=== PATIENT | female | born 1995 | race American Indian/Alaskan Native ===

== ENCOUNTER 2020-03-22 16:14 | Emergency (ER) | payer MEDICAID ==
--- NOTE | 2020-03-22 18:35 | Emergency Department Report ---
Blank Doc - Documentation Documentation: 24-year-old female that emerge department complaining of lower back pressure a ssociated with dysuria increased urinary urgency. No hemoptysis no hematemesis. She reports having some cold chills which started with her symptoms on yesterday. Pain had initially started to the suprapubic region and now has migrated up to her left flank This initial assessment/diagnostic orders/clinical plan/treatment(s) is/are subject to change based on patients health status, clinical progression and re- assessment by fellow clinical providers in the ED. Further treatment and workup at subsequent clinical providers discretion. Patient/guardian urged not to elope from the ED as their condition may be serious if not clinically assessed and managed. Initial orders include: Evaluate for UTI
[2020-03-22 19:13] LABS: Basophils # (Auto) 0.1 K/mm3 (0.0-0.1); Basophils % (Auto) 0.5 % (0.0-1.8); Eosinophils # (Auto) 0.2 K/mm3 (0.0-0.4); Eosinophils % (Auto) 0.9 % (0.0-4.3); Hematocrit 29.1 % (30.3-42.9); Hemoglobin 8.9 gm/dl (10.1-14.3); Lymphocytes # (Auto) 2.8 K/mm3 (1.2-5.4); Lymphocytes % (Auto) 15.4 % (13.4-35.0); Mean Corpuscular HGB Conc 31 % (30-34); Mean Corpuscular Volume 67 fl (79-97); Monocytes # (Auto) 1.1 K/mm3 (0.0-0.8); Monocytes % (Auto) 6.2 % (0.0-7.3); Platelet Count 481 K/mm3 (140-440); Red Blood Count 4.31 M/mm3 (3.65-5.03); Red Cell Distribution Width 18.8 % (13.2-15.2)
[2020-03-22 19:25] LABS: Alanine Aminotransferase 10 units/L (7-56); Albumin 4.2 g/dL (3.9-5); BUN/Creatinine Ratio 9; Blood Urea Nitrogen 7 mg/dL (7-17); Calcium 9.5 mg/dL (8.4-10.2); Hemolysis Index 16
[2020-03-22] MEDS ORDERED: ACETAMINOPHEN 325 MG TAB ONE (19:53)
[2020-03-22] MEDS ORDERED: ACETAMINOPHEN 325 MG TAB PO ONE (19:54)
[2020-03-22 21:45] LABS: Bilirubin,Urine NEG (Negative); Blood,Urine SM (Negative); Color,Urine Yellow (Yellow); Mucus,Urine FEW /HPF; Urobilinogen,Urine < 2.0 mg/dL (<2.0)
[2020-03-22 21:46] LABS: WBC,Urine > 182.0 /HPF (0.0-6.0)
[2020-03-22] MEDS ORDERED: SODIUM CHLORIDE 0.9% 1000 ML 2,000 ML IV ONE (21:54)
[2020-03-22] MEDS ORDERED: cefTRIAXone/NS 1 GM/50 ML 1 GM/50 ML BAG IV ONE (21:55)
[2020-03-22] MEDS ORDERED: MORPHINE 2 MG/1 ML INJ IV ONE (21:55)
[2020-03-22 22:18] LABS: HCG Qualitative,Urine Negative (Negative)
--- NOTE | 2020-03-22 23:21 | Emergency Department Report ---
ED Abdominal Pain HPI - General Chief Complaint: Urogenital-Female Stated Complaint: ABD PAIN, PAIN WHEN URINATE Time Seen by Provider: 03/22/20 20:13 Source: patient Mode of arrival: Ambulatory Limitations: No Limitations - History of Present Illness Initial Comments: 24-year-old female that emerge department complaining of lower back pressure associated with dysuria increased urinary urgency. No hemoptysis no hematemesis. She reports having some cold chills which started with her symptoms on yesterday. Pain had initially started to the suprapubic region and now has migrated up to her left flank MD Complaint: abdominal pain, flank pain Onset/Timin -: days(s) Location: suprapubic Radiation: L flank Severity scale (0 -10): 4 Quality: stabbing, aching Consistency: constant Improves With: nothing Worsens With: movement Associated Symptoms: nausea, fever, chills, dysuria. denies: vomiting, diarrhea - Related Data LMP Date: 03/17/20 Previous Rx's Medication Instructions Recorded Last Taken Type HYDROcodone/ACETAMINOPHEN [Vicodin 1 each PO Q8H PRN #12 tablet 03/23/20 Unknown Rx Hp 10-300 mg Tablet] Ibuprofen [Motrin 600 MG tab] 600 mg PO Q8H PRN #30 tablet 03/23/20 Unknown Rx Nitrofurantoin Tucker/M-Cryst 100 mg PO Q12HR 10 Days #20 capsule 03/23/20 Unknown Rx [Macrobid CAP] metroNIDAZOLE [Flagyl] 500 mg PO Q8HR 7 Days #21 tablet 03/23/20 Unknown Rx Allergies Allergy/AdvReac Type Severity Reaction Status Date / Time No Known Allergies Allergy Unverified 03/22/20 16:38 ED Review of Systems ROS: Stated complaint: ABD PAIN, PAIN WHEN URINATE Other details as noted in HPI Comment: All other systems reviewed and negative ED Past Medical Hx - Past Medical History Previous Medical History?: No - Surgical History Past Surgical History?: No - Social History Smoking Status: Never Smoker Substance Use Type: None - Medications Home Medications: Home Medications Medication Instructions Recorded Confirmed Last Taken Type HYDROcodone/ACETAMINOPHEN [Vicodin 1 each PO Q8H PRN #12 tablet 03/23/20 Unknown Rx Hp 10-300 mg Tablet] Ibuprofen [Motrin 600 MG tab] 600 mg PO Q8H PRN #30 tablet 03/23/20 Unknown Rx Nitrofurantoin Tucker/M-Cryst 100 mg PO Q12HR 10 Days #20 capsule 03/23/20 Unknown Rx [Macrobid CAP] metroNIDAZOLE [Flagyl] 500 mg PO Q8HR 7 Days #21 tablet 03/23/20 Unknown Rx ED Physical Exam - General Limitations: No Limitations General appearance: alert, in distress - Head Head exam: Present: atraumatic, normocephalic - Eye Eye exam: Present: normal appearance - ENT ENT exam: Present: mucous membranes moist - Neck Neck exam: Present: normal inspection - Respiratory Respiratory exam: Present: normal lung sounds bilaterally - Cardiovascular Cardiovascular Exam: Present: regular rate - GI/Abdominal GI/Abdominal exam: Present: soft, tenderness, guarding. Absent: distended - External exam: Present: normal external exam Speculum exam: Present: cervical discharge Bi-manual exam: Present: adnexal tenderness (right) - Extremities Exam Extremities exam: Present: normal inspection, full ROM - Back Exam Back exam: Present: normal inspection, full ROM - Neurological Exam Neurological exam: Present: alert, oriented X3, normal gait - Psychiatric Psychiatric exam: Present: normal affect, normal mood - Skin Skin exam: Present: warm, dry, intact, normal color. Absent: rash ED Course Vital Signs 03/22/20 03/22/20 03/23/20 18:59 20:02 01:35 Temperature 99.4 F 98.5 F Pulse Rate 90 101 H Respiratory 18 18 18 Rate Blood Pressure 120/63 Blood Pressure 153/80 [Right] O2 Sat by Pulse 99 100 Oximetry ED Medical Decision Making - Lab Data Result diagrams: 03/22/20 18:40 03/22/20 18:40 - Radiology Data Radiology results: report reviewed Patient Name: BOY FERGUSON Gender: Female Date of : 1995 Referring Provider: EVER ODOM Organization: [facility] Accession Number: [id number] Requested Date: March 22, 2020 23:58 Report Status: Final Requested Procedure: 1 Procedure Description: CT abdomen pelvis w con Modality: CT Findings Reporting MD: Lorena Everett Dictation Time: March 22, 2020 23:26 Enrollment Manager: Not available Continuity Editor Date: CT abdomen pelvis w con INDICATION / CLINICAL INFORMATION: Pt complains of LT flank pain and lower back pressure and nausea. TECHNIQUE: Axial CT imaging of abdomen and pelvis was obtained with IV contrast. Coronal and sagittal reformatted imaging obtained and reviewed. All CT scans at this location are performed using CT dose reduction for ALARA by means of automated exposure control. COMPARISON: None available. FINDINGS: CT abdomen with contrast demonstrates normal appearance of the liver, spleen, pancreas, kidneys, and adrenal glands. Gallbladder is unremarkable. CT pelvis with contrast demonstrates mild inflammatory change in the anterior aspect of the lower pelvis. There is marked fullness/ mass in the left adnexa. The appearance is nonspecific but certainly worrisome for an ovarian process. The right adnexa is unremarkable. Small amount of free fluid is present in the posterior cul-de-sac. The sigmoid colon appears mildly inflamed as well, but I suspect inflammatory process is not arising from the sigmoid colon but more than likely the left adnexa. The GI tract within the mid and upper abdomen is unremarkable. A normal appendix is present. Visualized lung bases are clear. No acute osseous abnormality noted. IMPRESSION: 1. Inflammatory process within the pelvis which may be arising from the left adnexa as there is masslike fullness within the left adnexa although appearance is nonspecific on CT. Possibility of tubo-ovarian abscess or ovarian torsion could have this appearance and further evaluation with pelvic ultrasound including transvaginal is recommended. 2. Small amount of free fluid in the posterior cul-de-sac is present. 3. No other significant finding. Signer Name: Lorena Everett MD Signed: 03/22/2020 11:26 PM Workstation Name: [id number] Patient: BOY FERGUSON MR#: [id number] : 1995 Acct:[id number] Age/Sex: 24 / F ADM Date: 03/22/20 Loc: ED Attending Dr: Ordering Physician: LILLIAN REAVES Date of Service: 03/23/20 Procedure(s): US pelvic complete Accession Number(s): [id number] cc: LILLIAN REAVES ULTRASOUND PELVIS INDICATION / CLINICAL INFORMATION: Pelvic pain concern for adnexal abscess. TECHNIQUE: Transabdominal. Duplex Color Doppler used: Yes. COMPARISON: CT abdomen/pelvis, 03/22/2020 FINDINGS: UTERUS: Uterus appearance is unremarkable. The uterus measures 9.0 x 3.2 x 4.7 cm. Endometrial complex has a thickness of 5 mm which is normal. No focal uterine mass. RIGHT ADNEXA: No significant ovarian cyst or mass. Normal color Doppler blood flow. LEFT ADNEXA: No significant ovarian cyst or mass. Normal color Doppler blood flow. URINARY BLADDER: No significant abnormality. FREE FLUID: None. ADDITIONAL FINDINGS: None. IMPRESSION: 1. No abnormal finding identified on transabdominal pelvic ultrasound. No sonographic correlate for left adnexal masslike fullness on CT scan. 2. Inflammatory change on CT scan could be secondary to colitis. There was mild inflammatory change associated with the sigmoid colon. Please correlate with clinical pr esentation/symptoms. Signer Name: Lorena Everett MD Signed: 03/23/2020 2:41 AM Workstation Name: [id number] Transcribed By: Dictated By: Lorena Everett MD Electronically Authenticated By: Lorena Everett MD Signed Date/Time: 03/23/20240 DD/ 5 TD/TT: - Medical Decision Making 24-year-old female that emerge department complaining of lower back pressure associated with dysuria increased urinary urgency. No hemoptysis no hematemesis. She reports having some cold chills which started with her symptoms on yesterday. Pain had initially started to the suprapubic region and now has migrated up to her left flank. Patient reports minimal movement makes her pain worse. Ordered CT with contrast, Rocephin 1 g IV, 2 L of normal saline, CBC CMP urinalysis. Urinalysis shows greater than 182 WBC with small amounts of blood, large esterase. CT is concern for inflammatory changes and adnexa abscess. Order for ultrasound has been placed. Discussed with attending Dr. Love. Ultrasound was ordered shows no abnormal findings identified in the transabdominal pelvic ultrasound. Inflammatory changes on the CT scan could be secondary to colitis. There was some mild inflammatory changes associated with the sigmoid colon. Spoke to Dr. Brown DESIGN ASSEMBLER sales consultant she recommends treating patient for PID pain management and have her follow-up at the office. Critical care attestation.: If time is entered above; I have spent that time in minutes in the direct care of this critically ill patient, excluding procedure time. ED Disposition Clinical Impression: Pelvic pain, PID (acute pelvic inflammatory disease) UTI (urinary tract infection) Qualifiers: Urinary tract infection type: site unspecified Hematuria presence: without hematuria Qualified Code(s): N39.0 - Urinary tract infection, site not specified Disposition: TO HOME OR SELFCARE Is pt being admited?: No Does the pt Need Aspirin: No Condition: Stable Instructions: Pelvic Inflammatory Disease, [id number], Urinary Tract Infection, Adult Additional Instructions: Complete antibiotic as prescribed. Take pain medication as needed. Is very important for you to follow-up with an DESIGN ASSEMBLER. Prescriptions: metroNIDAZOLE [Flagyl] 500 mg PO Q8HR 7 Days #21 tablet Nitrofurantoin Tucker/M-Cryst [Macrobid CAP] 100 mg PO Q12HR 10 Days #20 capsule Ibuprofen [Motrin 600 MG tab] 600 mg PO Q8H PRN #30 tablet PRN Reason: Pain HYDROcodone/ACETAMINOPHEN [Vicodin Hp 10-300 mg Tablet] 1 each PO Q8H PRN #12 tablet PRN Reason: Pain , Severe (7-10) Referrals: LUCÍA JOHNSON MD [Primary Care Provider] - 3-5 Days [facility] [Provider Group] - 3-5 Days [facility] [Provider Group] - 3-5 Days [facility] [Provider Group] - 3-5 Days Forms: Work/School Release Form(ED)
--- NOTE | 2020-03-23 00:31 | Cat Scan Report ---
CT abdomen pelvis w con INDICATION / CLINICAL INFORMATION: Pt complains of LT flank pain and lower back pressure and nausea. TECHNIQUE: Axial CT imaging of abdomen and pelvis was obtained with IV contrast. Coronal and sagittal reformatte d imaging obtained and reviewed. All CT scans at this location are performed using CT dose reduction for ALARA by means of automated exposure control. COMPARISON: None available. FINDINGS: CT abdomen with contrast demonstrates normal appearance of the liver, spleen, pancreas, kidneys, and adrenal glands. Gallbladder is unremarkable. CT pelvis with contrast demonstrates mild inflammatory change in the anterior aspect of the lower pel vis. There is marked fullness/mass in the left adnexa. The appearance is nonspecific but certainly wo rrisome for an ovarian process. The right adnexa is unremarkable. Small amount of free fluid is prese nt in the posterior cul-de-sac. The sigmoid colon appears mildly inflamed as well, but I suspect inflammatory process is not arising from the sigmoid colon but more than likely the left adnexa. The GI tract within the mid and upper ab domen is unremarkable. A normal appendix is present. Visualized lung bases are clear. No acute osseous abnormality noted. IMPRESSION: 1. Inflammatory process within the pelvis which may be arising from the left adnexa as there is massl law fullness within the left adnexa although appearance is nonspecific on CT. Possibility of tubo-ova dileep abscess or ovarian torsion could have this appearance and further evaluation with pelvic ultraso und including transvaginal is recommended. 2. Small amount of free fluid in the posterior cul-de-sac is present. 3. No other significant finding. Signer Name: Lorena Everett MD Signed: 03/23/2020 12:26 AM Workstation Name: [id number]
[2020-03-23] MEDS ORDERED: SODIUM CHLORIDE 0.9% 1000 ML 1,000 ML IV ONE (02:41)
[2020-03-23] MEDS ORDERED: HYDROmorphone 1 MG/1 ML INJ IV ONE (02:41)
--- NOTE | 2020-03-23 02:46 | Ultrasound Report ---
ULTRASOUND PELVIS INDICATION / CLINICAL INFORMATION: Pelvic pain concern for adnexal abscess. TECHNIQUE: Transabdominal. Duplex Color Doppler used: Yes. COMPARISON: CT abdomen/pelvis, 03/22/2020 FINDINGS: UTERUS: Uterus appearance is unremarkable. The uterus measures 9.0 x 3.2 x 4.7 cm. Endometrial comple x has a thickness of 5 mm which is normal. No focal uterine mass. RIGHT ADNEXA: No significant ovarian cyst or mass. Normal color Doppler blood flow. LEFT ADNEXA: No significant ovarian cyst or mass. Normal color Doppler blood flow. URINARY BLADDER: No significant abnormality. FREE FLUID: None. ADDITIONAL FINDINGS: None. IMPRESSION: 1. No abnormal finding identified on transabdominal pelvic ultrasound. No sonographic correlate for l eft adnexal masslike fullness on CT scan. 2. Inflammatory change on CT scan could be secondary to colitis. There was mild inflammatory change a ssociated with the sigmoid colon. Please correlate with clinical presentation/symptoms. Signer Name: Lorena Everett MD Signed: 03/23/2020 2:41 AM Workstation Name: [id number]
[2020-03-23] MEDS ORDERED: AZITHROMYCIN 250 MG TAB PO ONE (03:06)
[2020-03-23 07:10] VITALS: BP 124/78
--- NOTE | 2020-03-25 13:19 | Emergency Department Report ---
Blank Doc - Documentation Documentation: Spoke with patient to follow-up she states that she is feeling much better inf orm patient that her gonorrhea test came back positive and that she needs to inform her sexual partner that they need to be tested and treated. Also informed patient that she needs to have a full STD panel and that she can have it done at her [facility] or the health department.
== END 2020-03-23 08:14 | disposition home or self-care (01) ==
LOC: ED 16:14
DX: N73.0 Acute parametritis and pelvic cellulitis (principal); N39.0 Urinary tract infection, site not specified; R10.2 Pelvic and perineal pain; Z79.1 Long term (current) use of non-steroidal anti-inflammatories (NSAID); Z79.899 Other long term (current) drug therapy
CPT/HCPCS: 36415; 74177; 76856; 80053; 81001; 81025; 83690; 85025; 87210; 87591; 96361; 96365; 96375; 99285; J0696; J1170; J2270; J7030; Q9967